=== PATIENT | female | born 1970 | race Two or more races ===

== ENCOUNTER 2020-03-16 01:00 | Emergency (ER) | payer SELFPAY ==
[~2020-03-16] VITALS: Ht 160 cm; Wt 69.0 kg
[2020-03-16 01:57] LABS: BASOPHILS # (AUTO) 0.04 x10^3/uL (0-0.1); BASOPHILS % (AUTO) 1 % (0-1); EOSINOPHILS # (AUTO) 0.18 x10^3/uL (0-0.4); EOSINOPHILS % (AUTO) 2 % (1-7); LYMPHOCYTES # (AUTO) 1.18 x10^3/uL (1-3.4); LYMPHOCYTES % (AUTO) 17 % (22-44); MD NO; MEAN CORPUSCULAR HEMOGLOBIN 28.2 pg (27.0-34.8); MEAN CORPUSCULAR HGB CONC 33.2 g/dL (32.4-35.8); MEAN CORPUSCULAR VOLUME 84.9 fL (80-100); MEAN PLATELET VOLUME 8.5 fL (7.4-10.4); MONOCYTES # (AUTO) 0.79 x10^3/uL (0.2-0.8); MONOCYTES % (AUTO) 11 % (2-9); NEUTROPHILS # (AUTO) 4.99 x10^3/uL (1.8-6.8); NEUTROPHILS % (AUTO) 70 % (42-75); PLATELET COUNT 490 x10^3/uL (130-400); RED BLOOD COUNT 4.23 x10^6/uL (3.82-5.3); RED CELL DISTRIBUTION WIDTH 14.2 % (9.6-15.2)
[2020-03-16 02:08] LABS: ANION GAP 6 mmol/L (5-15); CALCIUM 8.7 mg/dL (8.5-10.1); CHLORIDE 109 mmol/L (98-107); CREATININE 0.56 mg/dL (0.55-1.02)
[2020-03-16 02:51] VITALS: BP 102/54
--- NOTE | 2020-03-16 02:51 | NUR ---
PT SWAB OBTAINED & SENT.
== END 2020-03-16 02:57 | disposition home or self-care (01) ==
LOC: ED 01:17
DX: J18.9 Pneumonia, unspecified organism (principal); Z20.828 Contact with and (suspected) exposure to other viral communicable diseases; J06.9 Acute upper respiratory infection, unspecified; R06.00 Dyspnea, unspecified
CPT/HCPCS: 36415; 71045; 80048; 85025; 99284; U0001

== ENCOUNTER 2020-04-21 22:27 | Emergency (ER) | payer OTHER, SELFPAY ==
[~2020-04-21] VITALS: Ht 152.4 cm; Wt 72.0 kg
--- NOTE | 2020-04-21 22:53 | NUR ---
THIS IS A 49Y F THAT COMES IN TONIGHT FOR A COUGH AND SORE THROAT X2WKS ALONG WITH BILAT EAR PAIN. PT DENIES FEVER/ CHILLS/ SOB. PT DENIES MEDICAL HX ASIDE FROM MIGRAINES. PT CONNECTED TO MONITORING VSS NADN.
[2020-04-21 23:06] VITALS: BP 100/59
[2020-04-21] MEDS ORDERED: KETOROLAC 30 MG/1 ML ONE (23:10)
--- NOTE | 2020-04-21 23:15 | NUR ---
PT MEDICATED PER MAR
[2020-04-21] MEDS ORDERED: KETOROLAC 30 MG/1 ML IM ONE (23:30)
[2020-04-21 23:41] LABS: BASOPHILS # (AUTO) 0.05 x10^3/uL (0-0.1); BASOPHILS % (AUTO) 1 % (0-1); EOSINOPHILS # (AUTO) 0.55 x10^3/uL (0-0.4); EOSINOPHILS % (AUTO) 8 % (1-7); LYMPHOCYTES # (AUTO) 2.16 x10^3/uL (1-3.4); LYMPHOCYTES % (AUTO) 30 % (22-44); MD NO; MEAN CORPUSCULAR HEMOGLOBIN 28.9 pg (27.0-34.8); MEAN CORPUSCULAR VOLUME 87.3 fL (80-100); MEAN PLATELET VOLUME 9.5 fL (7.4-10.4); MONOCYTES # (AUTO) 0.61 x10^3/uL (0.2-0.8); MONOCYTES % (AUTO) 9 % (2-9); NEUTROPHILS # (AUTO) 3.74 x10^3/uL (1.8-6.8); NEUTROPHILS % (AUTO) 53 % (42-75); PLATELET COUNT 238 x10^3/uL (130-400); RED BLOOD COUNT 4.02 x10^6/uL (3.82-5.3); RED CELL DISTRIBUTION WIDTH 16.8 % (9.6-15.2)
[2020-04-21 23:46] LABS: ALBUMIN 3.1 g/dL (3.4-5.0); ANION GAP 6 mmol/L (5-15); CALCIUM 8.1 mg/dL (8.5-10.1); CHLORIDE 108 mmol/L (98-107); CREATININE 0.53 mg/dL (0.55-1.02)
[2020-04-21 23:50] LABS: TROPONIN I < 0.015 ng/mL (0.000-0.045)
--- NOTE | 2020-04-22 00:04 | NUR ---
PT SLEEPING ON GURNEY NO NEEDS AT THIS TIME. REMAINS IN LOBBY
== END 2020-04-22 01:01 | disposition home or self-care (01) ==
LOC: ED 04-22 00:47
DX: J20.8 Acute bronchitis due to other specified organisms (principal); B34.9 Viral infection, unspecified; R05 Cough; R94.31 Abnormal electrocardiogram [ECG] [EKG]
CPT/HCPCS: 36415; 71045; 80048; 82040; 84484; 85025; 93005; 96372; 99285; J1885